=== PATIENT | female | born 1950 | race Caucasian/White ===

== ENCOUNTER 2023-03-04 06:13 | Day surgery (SDC) | payer MEDICARE, SELFPAY ==
--- NOTE | 2023-03-03 12:13 | HO.ANESPROP2 ---
Documented by User: Ana Ruvalcaba NP 03/03/23 12:13 HPI - Anesthesia Eval Consult details Narrative: 72yo F for Colonoscopy [facility] Past Medical History Medical History (Updated 03/03/23 @ 10:26 by Lien Aranda RN) Crohn disease Gallbladder polyp Kidney cysts Osteopenia Surgical History Surgical History (Updated 03/03/23 @ 10:26 by Lien Aranda RN) H/O colonoscopy S/P excision of lipoma Social History Social History Patient Tobacco Use Status: Never used Tobacco Use of substances other than those prescribed or required for medical reasons: No Are you DNR?: No Advance Directives: No Advance Directives Information Provided: Yes Meds Allergies Allergy/AdvReac Type Severity Reaction Status Date / Time Seasonal Allergies Allergy Unknown Verified 03/03/23 10:25 Sulfa (Sulfonamide Allergy Unknown Verified 03/03/23 10:25 Antibiotics) Exam Exam Date and Time: March 03, 2023 1213 Assessment and Plan Assessment Anesthesia Assessment: Chart Reviewed Documented by User: Clifford Carrasco MD 03/04/23 07:29 [facility] Past Medical History Medical History (Updated 03/03/23 @ 10:26 by Lien Aranda RN) Crohn disease Gallbladder polyp Kidney cysts Osteopenia Family History Family history of problems with anesthesia: No Surgical History Surgical History (Updated 03/03/23 @ 10:26 by Lien Aranda RN) H/O colonoscopy S/P excision of lipoma History of Problems with Anesthesia: No Social History Social History Patient Tobacco Use Status: Never used Tobacco Use of substances other than those prescribed or required for medical reasons: No Are you DNR?: No Advance Directives: No Advance Directives Information Provided: Yes Meds Allergies Allergy/AdvReac Type Severity Reaction Status Date / Time Seasonal Allergies Allergy Unknown Verified 03/03/23 10:25 Sulfa (Sulfonamide Allergy Unknown Verified 03/03/23 10:25 Antibiotics) Exam Airway Mallampati Class: II TM Dist: >3cm Neck ROM: Full Heart: ok Lungs: ok Assessment and Plan Assessment Anesthesia Assessment: Anesthesia Plan Discussed Final Anesthetic Review Family History of Problems with Anesthesia: No History of Problems with Anesthesia: No NPO: Yes ASA Class: II Final Preanesthetic Review: No Changes in Pt Med Stat, Meds/Allgs Chart Reviewed, Consent Obtained/Reviewed and Anes Risks/Benef Reviewed Patient Risk: Low Procedure Risk: Low Anesthetic Plan Anesthetic Plan: MAC: and Agree w/ Assess. and Plan Disposition: Standard PACU
[2023-03-04 06:50] VITALS: BP 125/73; PULSE 76; RESP 18; TEMP 36.4; O2SAT 98; BMI 26.4
--- NOTE | 2023-03-04 07:24 | P.HPSUR_ITS ---
Pre-Procedural Eval Section A Date of Service: 03/04/23 Section B Chief Complaint: crohn's disease Details of Present Illness: see H&P no changes Relevant Family History (Specify if Yes): No Relevant Social History: None Present Medications: see Short Stay [facility] assessment Medical History: No relevant PMH History of Previous Operations: No relevant previous surgery Allergies: Allergies Allergy/AdvReac Type Severity Reaction Status Date / Time Seasonal Allergies Allergy Unknown Verified 03/03/23 10:25 Sulfa (Sulfonamide Allergy Unknown Verified 03/03/23 10:25 Antibiotics) Review of Systems Sugical H&P ROS: Negative: Constitution, Cardiovascular, Respiratory, Neurological, Psychiatric, Hem-Onc, Allergic/Immunologic, Gastrointestinal, Genitourinary, Musculoskeletal, Integumentary, Endocrine and Eyes/Ears/Nose/T hroat Exam Surgical H&P Exam: Normal: HEENT, Normal: Heart, Normal: Lungs, Normal: Extremities, Normal: Abdomen, Normal: Skin and Normal: Neurological Plan Diagnosis/Plan: Unchanged I have reviewed the history and physical and performed a pertinent physical examination on my patient. No changes have occurred unless specified. Time Spent With Patient Time: Total time managing care of this patient today ____ minutes.
[2023-03-04] MEDS: Lactated Ringers 1,000 ML 100 ML IVCONT (07:29)
--- NOTE | 2023-03-04 08:00 | PM.OP ---
Brief Operative Note Date of Service: 03/04/23 Pre-op diagnosis: crohns Post-op diagnosis: same Procedure: colonoscopy Surgeon: Hugo Rose Anesthesia: MAC Was an Restaurant [employer] Person used for this Procedure?: No Estimated blood loss (mL): 5 Pathology: other Condition: stable Disposition: PACU
[2023-03-04 08:09] VITALS: BP 98/49; PULSE 72; RESP 16; TEMP 36.2; O2SAT 95
[2023-03-04 08:24] VITALS: BP 116/73; PULSE 69; RESP 16; TEMP 36.6; O2SAT 97
--- NOTE | 2023-03-04 08:41 | OP_ITS ---
DATE OF SERVICE: 03/04/2023 SURGEON: Hugo Rose MD INDICATIONS: Crohn disease. PREOPERATIVE DIAGNOSIS: POSTOPERATIVE DIAGNOSIS: PROCEDURE PERFORMED: ESTIMATED BLOOD LOSS: COMPLICATIONS: ANESTHESIA: Monitored anesthesia care. ASSISTANTS: SPECIMENS: OPERATION PERFORMED: Colonoscopy to the terminal ileum with biopsy. DESCRIPTION OF PROCEDURE: A history and physical was performed. The risks and benefits of the procedure were explained to the patient. Informed consent was obtained. The patient was placed in the left lateral decubitus position. A digital rectal exam was performed and was found to be normal. The Olympus pediatric video colonoscope was introduced into the rectum and advanced to the cecum without difficulty. The cecum was identified by transillumination, palpation, and identification of the ileocecal valve. Examination was performed, and the scope was removed. She tolerated the procedure well and was returned to recovery area in stable condition. FINDINGS: The terminal ileum was normal, this was biopsied. The visualized colonic mucosa was normal. There did appear to be some mild activity of disease with mild erythema, edema, loss of vascular pattern and a superficial single ulceration measuring approximately 2 mm. This was concentrated in the hepatic flexure. No polyps were identified. Biopsies were obtained in all 4 quadrants, approximately every 10 cm beginning in the cecum and extending to the rectum. Retroflexed examination showed small internal hemorrhoids. There were a few scattered diverticula. IMPRESSION: Crohn disease. RECOMMENDATION: Follow up the biopsy results. MD CARLA Bass/MAZIN / [id number]
== END 2023-03-04 09:33 | disposition home or self-care (01) ==
PROVIDERS: PCP Internal Medicine; Visit Provider Internal Medicine Gastroenterology
PROC: 0DJD8ZZ Inspection of Lower Intestinal Tract, Via Natural or Artificial Opening Endoscopic (ICD-10-PCS; CPT 45378; principal; 2023-03-04 07:30)
DX: K50.10 Crohn's disease of large intestine without complications (principal); K57.30 Diverticulosis of large intestine without perforation or abscess without bleeding; K64.8 Other hemorrhoids; Z80.0 Family history of malignant neoplasm of digestive organs; K21.9 Gastro-esophageal reflux disease without esophagitis; K82.4 Cholesterolosis of gallbladder; N28.1 Cyst of kidney, acquired; M85.80 Other specified disorders of bone density and structure, unspecified site; J30.2 Other seasonal allergic rhinitis
CPT/HCPCS: 45380; 88305